=== PATIENT | male | born 1975 | race Caucasian/White ===

== ENCOUNTER 2019-06-06 14:21 | Emergency (ER) | payer OTHER ==
[2019-06-06] MEDS ORDERED: IBUPROFEN 600 MG TABLET PO ONE (14:38)
[2019-06-06 14:42] VITALS: BP 137/99
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
== END 2019-06-06 15:46 | disposition home or self-care (01) ==
LOC: ER 14:21
DX: S62.346A Nondisplaced fracture of base of fifth metacarpal bone, right hand, initial encounter for closed fracture (principal); J34.89 Other specified disorders of nose and nasal sinuses; M79.641 Pain in right hand; V89.2XXA Person injured in unspecified motor-vehicle accident, traffic, initial encounter
CPT/HCPCS: 70160; 99283

== ENCOUNTER 2019-06-11 11:24 | Emergency (ER) | payer OTHER ==
[2019-06-11 11:33] VITALS: BP 125/74
== END 2019-06-11 11:30 | disposition left against medical advice (07) ==
LOC: ER 11:24
DX: Z53.21 Procedure and treatment not carried out due to patient leaving prior to being seen by health care provider (principal)

== ENCOUNTER 2020-01-30 16:40 | Emergency (ER) | payer MEDICARE ==
[2020-01-30] MEDS ORDERED: DEXAMETHASONE SOD PHOS INJ 10 MG/1 ML VIAL IM ONE (17:03)
[2020-01-30] MEDS ORDERED: KETOROLAC TROMETHAMINE INJ/PF 30 MG/1 ML SDV IM ONE (17:03)
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
[2020-01-30] MEDS ORDERED: DEXAMETHASONE SOD PHOSPHATE INJ 4 MG/1 ML VIAL IV ONE (17:14)
--- NOTE | 2020-01-30 17:56 | RADIOLOGY REPORT (SQ) ---
EXAM DESCRIPTION: L SPINE WHOLE IMAGES COMPLETED DATE/TIME: 01/30/2020 5:42 pm REASON FOR STUDY: low back pain radiating down right COMPARISON: None. NUMBER OF VIEWS: Five views including obliques. TECHNIQUE: AP, lateral, oblique, and sacral radiographic images acquired of the lumbar spine. LIMITATIONS: None. FINDINGS: MINERALIZATION: Normal. SEGMENTATION: Normal. No transitional anatomy. ALIGNMENT: Normal. VERTEBRAE: Maintained height. No fracture or worrisome bone lesion. DISCS: Minimal disc space narrowing. No significant osteophytes. POSTERIOR ELEMENTS: Pedicles and facets are intact. No pars defect or posterior arch defects. Facet arthropathy is present. HARDWARE: None in the spine. PARASPINAL SOFT TISSUES: Normal. PELVIS: Intact as visualized. No fractures or worrisome bone lesions. SI joints intact. OTHER: No other significant finding. IMPRESSION: No significant findings. TECHNICAL DOCUMENTATION: JOB ID: [id number] 2010 [employer]- All Rights Reserved Reading location - IP/workstation name: [email or web address]
[2020-01-30 18:16] VITALS: BP 126/72
== END 2020-01-30 18:20 | disposition home or self-care (01) ==
LOC: ER 16:40
DX: M54.41 Lumbago with sciatica, right side (principal); G89.29 Other chronic pain; E11.9 Type 2 diabetes mellitus without complications; I10 Essential (primary) hypertension
CPT/HCPCS: 99284; 96372; 82962; 72110; J1100; J1885; 96374